=== PATIENT | female | born 1970 | race African-American/Black ===

== ENCOUNTER 2016-10-24 19:01 | Emergency (ER) | payer MEDICAID, OTHER ==
[~2016-10-24] VITALS: Ht 167.6 cm; Wt 72.6 kg
[~2016-10-24 19:01] MED LIST: DILANTIN100 MG ORAL; FERROUS SULFAT500 G1 MC; IBUPROFEN600 MG ORAL; KEPPRA500 M3 ORAL; KEPPRA500 MG ORAL; NORCO 5-325 TA1 EACH ORAL; PROVERA10 MG ORAL
[2016-10-24 19:05] VITALS: BP 121/81
[2016-10-24] MEDS ORDERED: levETIRAcetam 500 MG in D5W 110 ML IV ONE (19:15)
--- NOTE | 2016-10-24 19:19 | Emergency Room Report ---
History of Present Illness General Chief Complaint: Seizure Source: Patient, EMS Present Illness HPI Patient is a 46-year-old female brought in by EMS after reported seizure. The patient prior history of seizure disorder. Patient appears to been on the Dilantin as well as Keppra. Patient had brief seizure witnessed which lasted approximately 1 minute report was tonic-clonic in nature. Patient was noted to have a seizure with EMS which lasted approximately 1 minute. Allergies: Coded Allergies: NO KNOWN DRUG ALLERGIES (Verified Allergy, Unknown, 12/07/13) Patient History Past Medical History: see triage record Reviewed Nursing Documentation: PMH: Agreed, PSxH: Agreed Nursing Documentation-PMH Past Medical History: No History, Except For Hx Cardiac Problems: No Hx Hypertension: Yes Hx Cancer: Yes - mother lung CA. Hx Gastrointestinal Problems: No History Of Psychiatric Problem: Yes - SCHIZO Hx Neurological Problems: Yes Hx Cerebrovascular Accident: No Hx Seizures: Yes Hx Epilepsy: No Hx Cerebral Palsy: No Hx Neurologic Surgery: No Review of Systems All Other Systems: negative except mentioned in HPI Physical Exam Vital Signs Date Time Temp Pulse Resp B/P Pulse Ox O2 Delivery O2 Flow Rate FiO2 10/24/16 18:57 98.2 78 18 121/81 98 Room Air Sp02 EP Interpretation: reviewed, normal General Appearance: normal inspection, well appearing, no apparent distress, alert, GCS 15, non-toxic Head: atraumatic ENT: normal ENT inspection, hearing grossly normal, normal voice Neck: normal inspection, full range of motion, supple, no bony tend Respiratory: normal inspection, lungs clear, normal breath sounds, no respiratory distress, no retraction, no wheezing Cardiovascular #1: regular rate, rhythm, no edema Gastrointestinal: normal inspection, normal bowel sounds, non tender, soft, no guarding, no hernia Genitourinary: no CVA tenderness Musculoskeletal: normal inspection, back normal, normal range of motion Neurologic: normal inspection, alert, oriented x3, responsive, yacht rigger III-XII nml as tested, speech normal Psychiatric: normal inspection, judgement/insight normal, mood/affect normal Skin: normal inspection, normal color, no rash Medical Decision Making Diagnostic Impression: Primary Impression: Seizure disorder Additional Impression: Pseudoseizures ER Course The patient presented for reported seizure. Differential diagnosis included cysticercosis, pseudoseizure, electrolyte abnormality, mass lesion, or cranial hemorrhage, medication noncompliance. Because of complexity of patient's case laboratory testing and imaging studies were ordered. The patient was observed in the emergency department patient was noted to have episode of what appear to be voluntary movements involving alternating tightness of her upper extremities and as well as her lower extremities. This resolved spontaneously. The patient was noted to not be postictal. This appeared to be a pseudoseizure. The patient was given IV Keppra. The patient appears to be stable for discharge. Patient is advised followup with her neurologist. She is given prescription for Keppra. Labs Test 10/24/16 19:30 White Blood Count 6.2 K/UL (4.8-10.8) Red Blood Count 4.34 M/UL (4.20-5.40) Hemoglobin 12.5 G/DL (12.0-16.0) Hematocrit 37.5 % (37.0-47.0) Mean Corpuscular Volume 86 FL (80-99) Mean Corpuscular Hemoglobin 28.9 PG (27.0-31.0) Mean Corpuscular Hemoglobin Concent 33.4 G/DL (32.0-36.0) Red Cell Distribution Width 11.2 % (11.6-14.8) Platelet Count 213 K/UL (150-450) Mean Platelet Volume 6.8 FL (6.5-10.1) Neutrophils (%) (Auto) 60.6 % (45.0-75.0) Lymphocytes (%) (Auto) 28.8 % (20.0-45.0) Monocytes (%) (Auto) 8.2 % (1.0-10.0) Eosinophils (%) (Auto) 0.9 % (0.0-3.0) Basophils (%) (Auto) 1.4 % (0.0-2.0) Sodium Level 141 mEQ/L (135-145) Potassium Level 5.8 mEQ/L (3.4-4.9) Chloride Level 105 mEQ/L (98-107) Carbon Dioxide Level 25 mEQ/L (20-30) Anion Gap 11 (5-15) Blood Urea Nitrogen 13 mg/dL (7-23) Creatinine 0.7 mg/dL (0.5-0.9) Estimat Glomerular Filtration Rate > 60 mL/min (>60) Glucose Level 105 mg/dL (74-106) Calcium Level 8.9 mg/dL (8.6-10.2) Total Bilirubin < 0.2 mg/dL (0.0-1.2) Aspartate Amino Transf (AST/SGOT) 43 U/L (5-40) Alanine Aminotransferase (ALT/SGPT) 24 U/L (3-33) Alkaline Phosphatase 74 U/L (35-104) Total Protein 8.0 g/dL (6.6-8.7) Albumin 3.9 g/dL (3.5-5.2) Globulin 4.1 g/dL Albumin/Globulin Ratio 0.9 (1.0-2.7) EKG Diagnostic Results Rate: normal - 79 Rhythm: NSR ST Segments: no acute changes Last Vital Signs Date Time Temp Pulse Resp B/P Pulse Ox O2 Delivery O2 Flow Rate FiO2 10/24/16 18:57 98.2 78 18 121/81 98 Room Air Status: improved Disposition: HOME, SELF-CARE Condition: Stable Scripts Levetiracetam (Levetiracetam) 500 Mg Tab 1000 MG ORAL EVERY 12 HOURS for 30 Days, TAB Prov: Niall Junior 10/24/16 Niall Junior Oct 24, 2016 19:19
[2016-10-24] MEDS ORDERED: levETIRAcetam 500mg vial IV ONE (19:33)
[2016-10-24 19:48] LABS: BASOPHILS % (AUTO) 1.4 % (0.0-2.0); EOSINOPHILS % (AUTO) 0.9 % (0.0-3.0); LYMPHOCYTES % (AUTO) 28.8 % (20.0-45.0); MEAN CORPUSCULAR HEMOGLOBIN 28.9 PG (27.0-31.0); MEAN CORPUSCULAR HGB CONC 33.4 G/DL (32.0-36.0); MEAN CORPUSCULAR VOLUME 86 FL (80-99); MEAN PLATELET VOLUME 6.8 FL (6.5-10.1); MONOCYTES % (AUTO) 8.2 % (1.0-10.0); NEUTROPHILS % (AUTO) 60.6 % (45.0-75.0); PLATELET COUNT 213 K/UL (150-450); RED BLOOD COUNT 4.34 M/UL (4.20-5.40); RED CELL DISTRIBUTION WIDTH 11.2 % (11.6-14.8); WHITE BLOOD COUNT 6.2 K/UL (4.8-10.8)
[2016-10-24 20:12] LABS: ALANINE AMINOTRANSFERASE 24 U/L (3-33); ALBUMIN/GLOBULIN RATIO 0.9 (1.0-2.7); ANION GAP 11 (5-15); ASPARTATE AMINO TRANSFERASE 43 U/L (5-40); CALCIUM 8.9 mg/dL (8.6-10.2); CARBON DIOXIDE 25 mEQ/L (20-30); CHLORIDE 105 mEQ/L (98-107); CREATININE 0.7 mg/dL (0.5-0.9); GLOMERULAR FILTRATION RATE > 60 mL/min (>60); HEMOLYSIS 409; POTASSIUM 5.8 mEQ/L (3.4-4.9); SODIUM 141 mEQ/L (135-145)
[2016-10-24 21:05] VITALS: BP 121/78
[2016-10-24] MEDS ORDERED: KEPPRA500 M3 ORAL (21:08)
[2016-10-24 21:25] VITALS: BP 121/78
--- NOTE | 2016-10-26 11:16 | Cardiology Report ---
APPROVED REPORT EKG Measurement Heart [id number] [place] 166P [id number] Normal sinus rhythm Left posterior fascicular block Abnormal ECG
== END 2016-10-24 21:25 | disposition home or self-care (01) ==
LOC: EDBD 19:01 → EMR 19:19
DX: G40.909 Epilepsy, unspecified, not intractable, without status epilepticus (principal); I10 Essential (primary) hypertension; Z79.899 Other long term (current) drug therapy; Z80.1 Family history of malignant neoplasm of trachea, bronchus and lung
CPT/HCPCS: 36415; 80053; 82962; 85025; 93005; 96374; 96375; 99284; J1953